=== PATIENT | male | born 1955 | race Asian ===

== ENCOUNTER 2025-02-12 17:19 | Emergency (ER) | payer OTHER, SELFPAY ==
[2025-02-12 17:22] VITALS: BP 166/76
[2025-02-12 18:12] LABS: Urine Albumin 2+ (Neg - Trace); Urine Bilirubin Negative (Negative); Urine Character Clear (Clear); Urine Color Amber; Urine Glucose 4+ (Negative); Urine Ketone Negative (Negative); Urine Leukocyte Negative (Negative); Urine Nitrite Negative (Negative); Urine Occult Blood Negative (Negative); Urine Specific Gravity 1.025 (<1.030); Urine Urobilinogen Negative (Neg - 1+)
[2025-02-12 18:31] LABS: COVID-19 Antigen Negative (Negative)
[2025-02-12 19:24] LABS: Urine Bacteria Few (Negative); Urine Calcium Oxalate Crystals Present; Urine Mucus Moderate; Urine Red Blood Cell 0-2 /HPF (0-2)
[2025-02-12 19:49] VITALS: BP 179/88
[2025-02-12 19:52] VITALS: BMI 25.6
--- NOTE | 2025-02-12 19:54 | ED.GENMED ---
History of Present Illness
General
Chief Complaint: Cold/Flu/URI Symptoms
Source: patient
Time Seen by Provider: 02/12/25 19:39
History of Present Illness
History of Present Illness:
69-year-old male with past medical history of insulin-dependent diabetes presenting to the emergency department for evaluation of URI-like symptoms that been ongoing since Friday with symptoms including cough, fatigue, sinus
pressure/congestion/headache, sore throat and some nasal congestion. Patient states that due to the continued symptoms decided to come to the ER today. He reports 1 day he had a temperature with a Tmax of 100 but did not take anything for it and
it went away on its own. Patient denies any known sick contacts, recent travel or recent antibiotics. He has no other concerns at this time.
Past History
Past History
ED Past Medical History: IDDM
ED Past Surgical History: None
Social History
Tobacco: Non-smoker
Alcohol: None
Drug: None
Personal:
Living: with family
Review of Systems
Review of Systems
All Other Systems: ROS reviewed and negative except as documented in HPI and ROS
Phy Exam
Physical Exam
Physical Exam:
GENERAL: Alert , in no apparent distress, well-appearing
EYE: conjunctiva clear
NECK: Supple
ENT: o/p clr, mmm.
CARDIAC: Regular rate and rhythm
LUNGS: Clear breath sounds bilaterally, no acute respiratory distress, no wheezes/rales/rhonchi
NEUROLOGICAL: Alert and oriented
SKIN: Warm and dry, skin intact.
MUSCULOSKELETAL: well perfused.
PSYCH: Normal and appropriate interaction.
Scores
Heart Failure Risk
Heart Failure Risk Score: Not Applicable
Heart Score for Chest Pain Patients
STEMI patient?: Not applicable
Withdrawal Assessment of Alcohol
Withdrawal Assessment Completed?: Not applicable
Course
Orders/Labs/Results
Orders:
Orders
02/12/25 17:25
CR Chest - 2 Views Urgent
Comment:
Reason For Exam: respiratory distress
02/12/25 17:27
Influenza A+B Rapid Molecular Urgent
JOHN Source: Nasal Swab
Specimen Description:
Date Specimen was Collected: 02/12/25
Time Specimen was Collected: 17:26
02/12/25 17:29
COVID-19 Antigen Urgent
Source: Nasal Swab
02/12/25 17:31
UA Reflex to Culture [Urinalysis Reflex To Culture] Urgent
Date Specimen was Collected: 02/12/25
Time Specimen was Collected: 17:26
Urine Microscopic Reflex Cult Urgent
Abnormal Lab Results
02/12/25
17:31
Urine Bacteria (Reflex) Few A
(Negative)
Urine Glucose 4+ A
(Negative)
Urine Albumin (Reflex) 2+ A
(Neg - Trace)
Vital Signs
Initial and Last Documented VS:
Initial Vital Signs
Temp Pulse Resp BP Pulse Ox
98.4 F 73 16 166/76 98
02/12/25 17:22 02/12/25 17:22 02/12/25 17:22 02/12/25 17:22 02/12/25 17:22
Last Documented Vital Signs
Temp Pulse Resp BP Pulse Ox
98.4 F 73 18 154/82 98
02/12/25 17:22 02/12/25 17:22 02/12/25 19:58 02/12/25 19:58 02/12/25 19:58
MDM/Problems Addressed
Differential Diagnosis Includes:
COVID, flu, other viral etiology, pneumonia, sinusitis
MDM/Problems Addressed:
69-year-old male presenting to the ER for evaluation of 5 days of URI-like symptoms, symptoms mostly mild but patient mostly concerned about continuous cough. No recent travel or sick contacts. Patient is hemodynamically stable in no acute
respiratory distress. Lungs clear to auscultation at time of my exam. Patient had COVID and flu testing done which was negative. Chest x-ray ordered from triage shows no acute infiltrates. Urinalysis ordered shows no signs of infection, there is
glucose within the urine which is likely related to patient's insulin-dependent diabetes. I do suspect symptoms are most likely viral. I will send a prescription for Zithromax to patient's pharmacy but I strongly encouraged the patient to hold
this medication until at least Friday and only if the symptoms have not improved or if they are worsening that he should start taking this medication patient expressed understanding. At this time stable for discharge home and outpatient follow-up.
*Radiology
Radiology exam reviewed: preliminary read by ED provider (Normal chest x-ray)
*Pulse Oximetry
Patient hypoxic: no
*[employer] Professional Interpretation
Rate: normal
Rhythm: sinus
*Critical Care Note
Total Time (30-74mins, 75-104mins- exclusive of procedures): Not Applicable
ED Attending Note
-
Portions of this chart may have been created with voice recognition software.� Occasional wrong word or��sound alike� substitutions may have occurred due to the inherent limitations of voice recognition software.
Discharge Plan
Departure
Patient Disposition: Home (Routine Discharge)
Date of Disposition: 02/12/25
Time of Disposition: 19:54
Patient with high blood pressure during this ER visit?: Yes
Discharge Problem:
Cough
Instructions: Cough in adults - ED discharge instructions
Prescriptions:
New
azithromycin [Zithromax] 250 mg tablet
See Rx Instructions .ROUTE .COMPLEX Qty: 6 0RF
Rx Instructions:
Take two tabs PO day 1, Take one tab PO remaining 4 days
No Action
insulin lispro [Humalog U-100 Insulin] 100 UNIT/ML solution
SC AC
Patient Comments:
SB=553 pt takes 14 units then an additional 2 units for every 50 points in BS
insulin glargine U-300 conc [Toujeo SoloStar U-300 Insulin] 300 UNIT/ML insulin pen
34 unit SC HS
famotidine [Pepcid] 40 MG tablet
40 mg PO DAILY Qty: 30 0RF
nirmatrelvir-ritonavir [Paxlovid] 10 DOSE/PACKET tablet
1 dose PO BID 5 Days Qty: 30 0RF
Rx Instructions:
Take Nirmatrelvir 300 mg (2 tabs) and Ritonavir 100 mg (1 tab) by mouth twice a day in AM and PM for 5 days.
oseltamivir [Tamiflu] 75 mg capsule
75 mg PO BID Qty: 10 0RF
ondansetron 4 mg Tablet,Disintegrating
4 mg PO BIDPRN PRN (Reason: nausea/vomiting) Qty: 10 0RF
Interventions
Interventions:
*Risk Screen - Suicide Last Done: 02/12/25 17:22
*General Assessment Last Done: 02/12/25 19:52
*Neglect/Abuse Screening Last Done: 02/12/25 17:22
*ED- Fall Risk Assessment Last Done: 02/12/25 19:52
*ED COVID-19 Vaccine History Last Done: 02/12/25 19:52
*Nursing Disposition Last Done: 02/12/25 19:58
ED- Pulmonary Assessment Last Done: 02/12/25 19:52
Discharge Date and Time
Discharge Date/Time: 02/12/25 20:12
Print Language: WELSH
[2025-02-12 19:57] VITALS: BP 154/82
[2025-02-12 19:58] VITALS: BP 154/82
== END 2025-02-12 20:12 | disposition home or self-care (01) ==
LOC: EMR 17:19
PROVIDERS: EMERGENCY PHYSICIAN Emergency Medicine
DX: R05.9 Cough, unspecified (principal); E11.9 Type 2 diabetes mellitus without complications; Z79.4 Long term (current) use of insulin; Z11.52 Encounter for screening for COVID-19
CPT/HCPCS: 99284; 71046; 81003; 81015; 87502; 87811

== ENCOUNTER 2025-03-05 15:33 | Emergency (ER) | payer OTHER, SELFPAY ==
[2025-03-05 15:38] VITALS: BP 148/72
[2025-03-05 15:53] LABS: Urine Albumin 1+ (Neg - Trace); Urine Bilirubin Negative (Negative); Urine Character Clear (Clear); Urine Color Yellow; Urine Glucose 4+ (Negative); Urine Ketone Negative (Negative); Urine Leukocyte 1+ (Negative); Urine Nitrite Negative (Negative); Urine Occult Blood 3+ (Negative); Urine Specific Gravity 1.025 (<1.030); Urine Urobilinogen Negative (Neg - 1+)
[2025-03-05 15:58] LABS: % Basophils 0.5 % (0-2); % Immature Granulocytes 0.3 % (0-0.5); % Monocytes 6.9 % (1.7-9.3); % Neutrophils 54.3 % (42.2-75.2); Absolute Eosinophils 0.1 10^3/uL (0-0.7); Absolute Lymphocytes 2.3 10^3/uL (1.2-3.4); Absolute Monocytes 0.4 10^3/uL (0.1-0.6); Absolute Neutrophils 3.5 10^3/uL (1.4-6.5); Hemoglobin 12.9 g/dL (13.0-18.0); Mean Corp Hgb Conc. 33.9 g/dL (33.0-37.0); Mean Corpuscular Hgb 29.9 pg (27.0-31.0); Mean Corpuscular Volume 88.2 fL (80.0-94.0); Nucleated Red Blood Cells % 0.3 % (-); Platelet Count 199 10^3/uL (130-400); Red Blood Cell Count 4.31 10^6/uL (4.70-6.10); Red Cell Dist. Width 12.9 % (11.5-14.5); White Blood Cell Count 6.4 10^3/uL (4.8-10.8)
[2025-03-05 16:08] LABS: Urine Mucus Few; Urine Squamous Cell 0-2 /LPF (Few)
[2025-03-05 16:09] LABS: Urine Bacteria Few (Negative)
[2025-03-05 16:10] LABS: AST (SGOT) 20 U/L (17-59); Albumin 3.7 g/dl (3.5-5.0); Blood Urea Nitrogen 20 mg/dl (9-20); Carbon Dioxide 22 mmol/L (22-30); Glucose 328 mg/dl (70-99); Total Bilirubin 0.5 mg/dl (0.2-1.3); Total Protein 6.4 g/dl (6.3-8.2); eGFR > 60.00
[2025-03-05 16:17] LABS: ALT (SGPT) 19 U/L (0-50); Alkaline Phosphatase 71 U/L (38-126); Calcium 9.3 mg/dl (8.4-10.2); Chloride 110 mmol/L (98-107); Potassium 4.3 mmol/L (3.5-5.1); Sodium 141 mmol/L (135-145)
--- NOTE | 2025-03-05 18:35 | ED.GENMED ---
History of Present Illness
General
Chief Complaint: Urinary Symptoms
Time Seen by Provider: 03/05/25 17:13
History of Present Illness
History of Present Illness:
69-year-old male without significant past medical history presenting to the emergency department for dark urine. Patient notes that he had an episode of dark urine 2 days ago, resolved. However, had another episode today which is since resolved.
Does note some intermittent left flank tenderness. Denies any history of kidney stones. Denies fever. Denies any present pain. He is not on any blood thinners. Does note that he had influenza 2 weeks ago, took 2 doses of prescribed
azithromycin, however had some diarrhea so he stopped. Denies chest pain or difficulty breathing. Denies additional acute medical complaint
Past History
Past History
ED Past Medical History: IDDM
ED Past Surgical History: None
Social History
Tobacco: Non-smoker
Alcohol: None
Drug: None
Personal:
Living: with family
Phy Exam
Physical Exam
Physical Exam:
General: Well-appearing, no clinical signs of dehydration, nontoxic and in no acute distress
HEENT: protecting airway
Neck: appears supple
CV: Normal heart rate, regular rhythm
Resp: No accessory muscle use, no increased work of breathing, lungs clear to auscultation bilaterally
Abd: Soft and non-distended, no tenderness to palpation
Extremities: No deformities, no swelling
Neuro: alert, no focal neurologic deficit
: deferred
Rectal: deferred
Psych: Normal affect
Skin: Intact
Course
Orders/Labs/Results
Orders:
Orders
03/05/25 15:45
Complete Blood Count/With Diff Urgent
Comprehensive Metabolic Panel Urgent
Urinalysis Reflex To Culture Urgent
Date Specimen was Collected: 03/05/25
Time Specimen was Collected: 15:43
Urine Microscopic Reflex Cult Urgent
Urine Culture Urgent
JOHN Source: U
Specimen Description:
Date Specimen was Collected: 03/05/25
Time Specimen was Collected: 15:43
03/05/25 17:47
CT Abd/pel Without Iv Or Oral Urgent
Comment:
Reason For Exam: L-flank pain, hematuria, suspect stone
03/05/25 20:11
Tamsulosin [Flomax] 0.4 mg PO NOW STA
Abnormal Lab Results
03/05/25
15:45
RBC 4.31 L 10^6/uL
(4.70-6.10)
Hgb 12.9 L g/dL
(13.0-18.0)
Hct 38.0 L %
(39.0-52.0)
Chloride 110 H mmol/L
(98-107)
Glucose 328 H mg/dl
(70-99)
Ur Occult Blood Reflex 3+ A
(Negative)
Leukocyte Esterase Rfl 1+ A
(Negative)
Urine RBC 3-6 A /HPF
(0-2)
Urine Bacteria (Reflex) Few A
(Negative)
Urine Glucose 4+ A
(Negative)
Urine Albumin (Reflex) 1+ A
(Neg - Trace)
03/05/25 15:45
03/05/25 15:45
Vital Signs
Initial and Last Documented VS:
Initial Vital Signs
Temp Pulse BP Pulse Ox
98.1 F 69 148/72 97
03/05/25 15:38 03/05/25 15:38 03/05/25 15:38 03/05/25 15:38
Last Documented Vital Signs
Temp Pulse BP Pulse Ox
98.1 F 69 167/83 97
03/05/25 15:38 03/05/25 15:38 03/05/25 20:00 03/05/25 20:00
MDM/Problems Addressed
MDM/Problems Addressed:
69-year-old male presenting for dark urine and intermittent left flank pain. Vital signs on arrival are normal
On exam patient is resting comfortably, no acute distress or discomfort. Reassuring examination with no tenderness to the abdomen, no tenderness to the flank. Urine obtained, which does show some hematuria, microscopic. Concern for possible
kidney stone given intermittent pain. Labs unremarkable, mild anemia, normal renal function. Will obtain CT imaging of the abdomen to evaluate for possible renal pathology.
20:10 -labs relatively unremarkable, no leukocytosis. CT does show a 4 mm stone at the UVJ. Patient's pain continues to be controlled. No concern for infected stone at this time, however suspected source of patient's dark urine, microscopic
hematuria. At this time feel stable for discharge. Communicated to patient, follow-up with urology, will prescribe Flomax to try and pass the stone. Advised Tylenol or Motrin as needed for pain. Return precautions discussed and family verbalized
understand
*Critical Care Note
Total Time (30-74mins, 75-104mins- exclusive of procedures): Not Applicable
ED Attending Note
-
Portions of this chart may have been created with voice recognition software.� Occasional wrong word or��sound alike� substitutions may have occurred due to the inherent limitations of voice recognition software.
Discharge Plan
Departure
Prescriptions:
No Action
insulin lispro [Humalog U-100 Insulin] 100 UNIT/ML solution
SC AC
Patient Comments:
JF=890 pt takes 14 units then an additional 2 units for every 50 points in BS
insulin glargine U-300 conc [Toujeo SoloStar U-300 Insulin] 300 UNIT/ML insulin pen
34 unit SC HS
famotidine [Pepcid] 40 MG tablet
40 mg PO DAILY Qty: 30 0RF
nirmatrelvir-ritonavir [Paxlovid] 10 DOSE/PACKET tablet
1 dose PO BID 5 Days Qty: 30 0RF
Rx Instructions:
Take Nirmatrelvir 300 mg (2 tabs) and Ritonavir 100 mg (1 tab) by mouth twice a day in AM and PM for 5 days.
oseltamivir [Tamiflu] 75 mg capsule
75 mg PO BID Qty: 10 0RF
ondansetron 4 mg Tablet,Disintegrating
4 mg PO BIDPRN PRN (Reason: nausea/vomiting) Qty: 10 0RF
azithromycin [Zithromax] 250 mg tablet
See Rx Instructions .ROUTE .COMPLEX Qty: 6 0RF
Rx Instructions:
Take two tabs PO day 1, Take one tab PO remaining 4 days
Referrals:
UNKNOWN - PT DOES,NOT KNOW [Family Provider] -
Interventions
Interventions:
*Risk Screen - Suicide Last Done: 03/05/25 15:40
*General Assessment Last Done: 03/05/25 15:40
*Neglect/Abuse Screening Last Done: 03/05/25 15:40
*ED- Fall Risk Assessment Last Done: 03/05/25 15:40
*ED COVID-19 Vaccine History Last Done: 03/05/25 15:40
ED-Male Genitourinary Assessment Last Done: 03/05/25 19:14
Discharge Date and Time
Print Language: YORUBA
[2025-03-05 19:17] VITALS: BP 161/80
[2025-03-05 20:00] VITALS: BP 167/83
[2025-03-05] MEDS: FLOMAX 0.4 MG PO (20:20)
== END 2025-03-05 20:29 | disposition home or self-care (01) ==
LOC: EMR 15:33
PROVIDERS: EMERGENCY PHYSICIAN Student in an Organized Health Care Education/Training Program
DX: R31.29 Other microscopic hematuria (principal); R10.9 Unspecified abdominal pain; E11.9 Type 2 diabetes mellitus without complications; D64.9 Anemia, unspecified; Z79.4 Long term (current) use of insulin
CPT/HCPCS: 99284; 74176; 80053; 81003; 81015; 85025; 87086